=== PATIENT | male | born 1970 | race Caucasian/White ===

== ENCOUNTER 2017-07-13 22:20 | Observation (INO) ==
[2017-07-13] MEDS ORDERED: amLODIPine 5 MG TABLET PO SCH (23:45)
--- NOTE | 2017-07-13 23:45 | Internal Med History&Physical ---
Date of Encounter: 07/13/17 Time of Encounter: 23:45 Assessment and Plan (1) Increased ammonia level Current visit: No Status: Acute check RUQ US INR, albumin - synthetic function appears wnl trial lactulose titrate to 3-4 BM daily (2) Uncontrolled hypertension Current visit: Yes Status: Acute increase norvasc from 5 to 10 continue lisinopril Add thiazide (3) Elevated lipids Current visit: Yes Status: Acute start lipitor (4) Dizziness Current visit: Yes Status: Acute check MRI brain to r/o occult post CVA given poor HTN control Internal Medicine - H&P: HPI Chief complaint: high BP, dizzy spells, feels "wore out" History of present illness: Mr. 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 [facility] ED called for transfer due to incidental elevation of ammonia > 600. Described symptoms onset since tuesday. Non-specific but noted BP high. Associated with fatigue, "felt bad", "wore out" and dizziness/ligtheheadness/ off balance. On tuesday morning, his blood sugar was reported low at 32. Symptoms did not improve, leading to ED visit at [facility]. He smokes 1 PPD EKG at [facility], rate 81 CT/CT head/brain wo con IMPRESSION: 1. No acute intracranial abnormality. 2. Minimal predominantly bifrontal atrophy greater than expected for age. XR/XR chest 1V portable IMPRESSION: No acute process. Past Med Surg Social Fam HX - Past Medical History Medical history: hypertension, kidney stones, other Psychiatric history: no psych history - Past Surgical History Surgical History: non-contributory - Social History Smoking Status: Current every day smoker Smokeless Tobacco Status: No Alcohol use: none Drug use: none - Family History Father Adopted: [place]: Austin Pearson Age: 56 Family Member Ethnicity: Non- Age at : 56 Cause of : Cirrhosis Mother Adopted: [place]: Madelyn Stahl Age: 66 Age at : 66 Cause of : cancer not sure what kind Internal Medicine - H&P: Meds amLODIPine [Norvasc] 5 mg PO DAILY #30 tablet 06/25/16 [Rx] Lisinopril [Zestril] 40 mg PO DAILY 07/13/17 [History] 3 Allergy/AdvReac Type Severity Reaction Status Date / Time No Known Allergies Allergy Verified 07/13/17 20:25 All Systems PM: A 10-system review of systems was performed and is negative for pertinent findings except as documented above in the HPI. Review of systems: ROS 14 point review of systems reviewed as best as possible given presentation. Pertinent positive or negative as per HPI or otherwise reviewed as negative - Constitutional Vitals: Temp Pulse Resp BP Pulse Ox 98.6 F 81 15 192/111 96 07/13/17 23:35 07/13/17 23:35 07/13/17 23:35 07/13/17 23:35 07/13/17 23:35 Exam: General - AAO x 3 Psych - Appropriate affect/speech. No agitation Eyes - CHRISTIAN. Eye lids intact. No scleral icterus Neuro - No gross peripheral or central neuro deficits on inspection Heart - Sinus. RRR. S1 and S2 present. No added HS/murmurs appreciated. No elevated JVD appreciated. Lung - Adequate air entry b/l, No crackles/wheezes appreciated GI - Soft, non-tender. No hepatosplenomegaly/ascites. BS+ - No CVA/suprapubic tenderness or palpable bladder distension Skin - Intact. No rash/petechiae/ecchymosis. Warm extremities
[2017-07-13] MEDS ORDERED: Naloxone 0.4 MG/ML INJ IVP PRN (23:49)
[2017-07-14] MEDS ORDERED: Lisinopril 20 MG TABLET PO SCH (09:00)
[2017-07-14] MEDS ORDERED: Lactulose Oral Soln 20 GM/30 ML UDC PO SCH ×2 (09:00)
[2017-07-14 09:41] LABS: Estimated Average Glucose 117 mg/dl; Hemoglobin A1C 5.7 %
[2017-07-14 11:13] VITALS: BP 128/80
--- NOTE | 2017-07-14 15:16 | Discharge Summary ---
- NOTES TO OUTPATIENT PROVIDER Notes to Outpatient Provider: May recheck an ammoia level and LFTs in a month Date of Encounter: 07/14/17 Time of Encounter: 15:14 - Discharge Diagnosis (1) Increased ammonia level Priority: Primary Status: Acute Comments: likely a lab error (2) Dizziness Priority: Secondary Status: Acute (3) Uncontrolled hypertension Priority: Secondary Status: Acute (4) Hypoglycemia Priority: Secondary Status: Acute Comments: has not had episodes of hypoglycemia A1c was 5.7 Hospital course: Mr. 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 [place] ED called for transfer due to incidental elevation of ammonia > 600. Described symptoms onset since tuesday. Non-specific but noted BP high. Associated with fatigue, "felt bad", "wore out" and dizziness/ligtheheadness/ off balance. On tuesday morning, his blood sugar was reported low at 32. Symptoms did not improve, leading to ED visit at [place]. Received lactulose, repeat ammonia 52, the >600 value was probably a lab error. MRI of the brain showed: 1. No evidence of an acute infarct or intracranial mass. 2. Mild chronic microvascular white matter ischemic disease is noted supratentorially. BP was >190, amlodipine was increased to 10 mg daily, was started on 25 mg of chlorthalidone and continue lisinopril 40 mg Risks were explained to the patient, prefers to be discharged at this point. Time spent discussing smoking cessation with patient: 3 to 10 minutes - Time Spent with Patient Total time spent providing and/or coordinating discharge services: Greater than 30 minutes (40 min) - Discharge Medications Prescriptions: amLODIPine [Norvasc] 10 mg PO HS #30 tablet Chlorthalidone 25 mg PO DAILY #30 tablet Lactulose 20 gm PO DAILY 30 Days [facility] [place] Medications: Lisinopril [Zestril] 40 mg PO DAILY 07/13/17 [History] Chlorthalidone 25 mg PO DAILY #30 tablet 07/14/17 [Rx] Lactulose 20 gm PO DAILY 30 Days c 07/14/17 [Rx] amLODIPine [Norvasc] 10 mg PO HS #30 tablet 07/14/17 [Rx] Allergies/Adverse Reactions: 3 Allergy/AdvReac Type Severity Reaction Status Date / Time No Known Allergies Allergy Verified 07/13/17 20:25 Date of admission: 07/13/17 23:22 Primary care physician: Lluvia Guerra - Constitutional Vitals: Temp Pulse Resp BP Pulse Ox 98.4 F 75 15 128/80 97 07/14/17 11:12 07/14/17 11:12 07/14/17 11:12 07/14/17 11:12 07/14/17 11:12 General appearance: Present: A&O X 3 - Head Head exam: Present: atraumatic, normocephalic - Eye Eye exam: Present: PERRL, conjuntiva pink, sclera anicteric Pupils: Present: PERRL - Neck Neck exam general surgery: Present: supple, trachea midline. Absent: lymphadenopathy - Respiratory Respiratory exam: Present: CTAB. Absent: accessory muscle use, rales, rhonchi, wheezes - Cardiovascular Cardiovascular exam: Present: RRR, +S1, +S2. Absent: diastolic murmur, gallop, rubs, systolic murmur - GI/Abdominal GI/Abdominal exam: Present: normal bowel sounds, soft, no peritoneal signs. Absent: distended, tenderness - Extremities Exam Extremities exam: Present: warm, radial pulses palpable and symmetrical. Absent : calf tenderness, cyanotic, pedal edema - Neurological Exam Neurological exam: Present: CN II-XII intact, oriented X3, no focal deficits. Absent: pronater drift, facial droop, speech deficit - Skin Skin exam: Present: dry, intact - Patient Status Disposition: Home, Self-Care Condition: Good Overall status at discharge: patient is back to baseline - Discharge Instructions Follow Up With: Lluvia Guerra, TANI [Primary Care Provider] - Additional Instructions: Follow-up with primary care physician within the next 7 days. Amlodipine was increased to 10 mg daily, was started on 25 mg of chlorthalidone and continue lisinopril 40 mg. could smoking. Continue lactulose daily - Diet and Activity Activity: increase activity as tolerated Diet: low fat, low cholesterol
== END 2017-07-14 16:07 | disposition home or self-care (01) ==
LOC: 3ANU
PROVIDERS: ADMIT Internal Medicine Hematology & Oncology; ATTEND Internal Medicine